=== PATIENT | female | born 1965 | race Caucasian/White ===

== ENCOUNTER 2020-05-20 09:13 | Emergency (ER) | payer OTHER, SELFPAY ==
--- NOTE | ~2020-05-20 | XR_ITS ---
EXAMINATION: XR chest 2V 05/20/2020 09:57 INDICATION: Cough and shortness of breath PROCEDURE: 2 view chest COMPARISON: No prior studies for comparison. FINDINGS: The lungs are clear. There are left fourth and fifth healed rib fractures. The cardiomedias tinal silhouette is within normal limits. There are no pleural effusions. There is no pneumothorax suspected. The lungs are hyperinflated which is consistent with, but not diagnostic of chronic obstr uctive pulmonary disease. IMPRESSION: 1: NO ACUTE CARDIOPULMONARY DISEASE. Reviewed, dictated and finalized at location A. [employer] MANAGER
[2020-05-20 09:30] VITALS: BP 98/60; PULSE 99; RESP 20; TEMP 36.3; O2SAT 98
--- NOTE | 2020-05-20 09:47 | ED.GENADULT ---
HPI - General Adult General Chief complaint: Upper Respiratory Infection Stated complaint: URI Source: patient Mode of arrival: ambulatory History of Present Illness HPI narrative: Patient presents for evaluation of upper respiratory symptoms since 05/10/2020. She reports sinus congestion, clear rhinorrhea, productive cough of yellow sputum, headache, nausea, vomiting. She states in the last few days she is experienced some dyspnea on exertion. She denies any fever, chills, chest pain or diarrhea. She had a mild sore throat at one point, but that has since resolved. No recent sick contacts. She took a Covid test on 05/10/2020 that was negative. She tried taking Jaky-[place], Benadryl, Mucinex DM. She does smoke 1 pack/day. No recent surgeries. Not on exogenous estrogen. Related Data Home Medications Medication Instructions Recorded Confirmed amlodipine 10 mg PO DAILY 05/20/20 05/20/20 hydrochlorothiazide 25 mg PO DAILY 05/20/20 05/20/20 propranolol 20 mg PO DAILY 05/20/20 05/20/20 Allergies Allergy/AdvReac Type Severity Reaction Status Date / Time Sulfa (Sulfonamide Allergy Severe Hives Verified 05/20/20 09:51 Antibiotics) Review of Systems Review of Systems: Narrative: CONSTITUTIONAL: Denies fever, chills, or sweats. EYES: Denies visual changes, redness, or discharge. ENT: Reports clear rhinorrhea, sinus congestion. She previously experienced sore throat, although none currently. CARDIOVASCULAR: Denies chest pain, palpitations, or edema. RESPIRATORY: She reports productive cough of yellow sputum and dyspnea on exertion GASTROINTESTINAL: Denies abdominal pain and diarrhea. Reports nausea and vomiting GENITOURINARY: Denies dysuria or hematuria. SKIN: Denies rash or itching. MUSCULOSKELETAL: Denies back pain, joint pain, or myalgia. NEUROLOGIC: Denies headache, numbness, dizziness, or weakness. PSYCHIATRIC: Denies anxiety or depression. [facility] Past Medical History Medical History Hypertension Tobacco use Surgical History Surgical History History of breast augmentation History of tonsillectomy Family History Family History (Updated 05/20/20 @ 09:50 by Nasir Dawn, KRISTI, JUICE) Mother No pertinent past medical history Social History Social History Smoking status: Current every day smoker Tobacco type: cigarettes Additional smoking assessment comments: Smokes 1 pack/day Substance use: never Living arrangements: alone Occupation/Education: occupation Gender identity (if verbalized by the patient): Female Spiritual care concerns: No Exam Narrative: Exam Narrative: GENERAL: Mildly ill-appearing. wWell-nourished, and in no acute distress. HEAD: Normocephalic, atraumatic. EYES: PERRLA and EOMI. ENT: Nares clear, no rhinorrhea or epistaxis. Mucous membranes moist. Oropharynx without tonsillar hypertrophy exudate or other lesions. Bilateral TMs pearly dorsey nonbulging NECK: Supple. No adenopathy or masses. No carotid bruits or JVD CHEST: Clear to auscultation. No respiratory distress. No wheezes rales or rhonchi HEART: Regular rate and rhythm. Heart rate 99. No murmur heard. Normal peripheral pulses. ABDOMEN: Soft, nontender, nondistended, normal active bowel sounds. EXTREMITIES: Normal range of motion. No edema. SKIN: Warm, dry, no rash. NEURO: No focal deficits. Alert and oriented x3. PSYCH: Normal mood and affect. Course Course Emergency Course: This is a 54-year-old female with complaints of respiratory symptoms since 05/10/2020. Strep, flu, rapid Covid, chest x-ray were obtained. Influenza, Covid, chest x-ray were normal. She did test positive for strep pharyngitis. Will treat with oral penicillin. Patient has no uvular deviation to suggest presence of peritonsillar abscess. In fact, her posterior pharyngeal exam is normal. She was instructed to take an
== END 2020-05-20 10:19 | disposition home or self-care (01) ==
PROVIDERS: Emergency Provider Nurse Practitioner; PCP Nurse Practitioner Adult Health
DX: J02.0 Streptococcal pharyngitis (principal); I10 Essential (primary) hypertension; F17.210 Nicotine dependence, cigarettes, uncomplicated
CPT/HCPCS: 71046; 87426; 87804; 87880; 99213; C9803; G0463

== ENCOUNTER 2021-08-02 15:47 | Emergency (ER) | payer OTHER, SELFPAY ==
[2021-08-02 15:55] VITALS: BP 138/86; PULSE 94; RESP 14; TEMP 36.8; O2SAT 100
--- NOTE | 2021-08-02 16:09 | ED.GENADULT ---
HPI - General Adult General Chief complaint: Dental/Oral Stated complaint: Toothache Time Seen by Provider: 08/02/21 16:10 Source: patient Mode of arrival: ambulatory History of Present Illness HPI narrative: 55-year-old female presented for complaint of sore throat, onset today. She states she has some swelling and tenderness to the roof of her mouth at the left molars. She denies any associated sinus congestion, pressure, ear pain, nausea, fever or chills. She has no pain when chewing or talking. Only hurts to swallow. She has taken ibuprofen as needed. History of tonsillectomy. She is 1-1/2 pack/day smoker. Related Data Home Medications Medication Instructions Recorded Confirmed amlodipine 10 mg PO DAILY 05/20/20 08/02/21 hydrochlorothiazide 25 mg PO DAILY 05/20/20 08/02/21 Allergies Allergy/AdvReac Type Severity Reaction Status Date / Time Sulfa (Sulfonamide Allergy Severe Hives Verified 08/02/21 15:56 Antibiotics) Review of Systems Review of Systems: CONSTITUTIONAL: Denies body aches, fever, chills ENT: Denies rhinorrhea, congestion, sore throat, or otalgia. Reports dental/mouth pain CARDIOVASCULAR: Denies chest pain, palpitations RESPIRATORY: Denies cough or dyspnea. SKIN: Denies rash, itching, or wounds. MUSCULOSKELETAL: Denies myalgia. NEUROLOGIC: Denies headache, numbness, tingling, or weakness. [facility] Past Medical History Medical History Hypertension Tobacco use Surgical History Surgical History History of breast augmentation History of tonsillectomy Family History Family History Mother No pertinent past medical history Social History Social History Smoking status: Current every day smoker Tobacco type: cigarettes Additional smoking assessment comments: Smokes 1 pack/day Substance use: never Gender identity (if verbalized by the patient): Female Spiritual care concerns: No Comments At time of signature, I have reviewed and agree with nursing past medical, surgical, social and family history unless otherwise noted. Please see nursing chart for further information. There is no relevant family history pertinent to the presenting complaint Exam Narrative: GENERAL: Appears in pain; in no acute distress. HEAD: Normocephalic, atraumatic. EYES: EOMI. No redness or drainage. Conjunctivae normal. ENT: Mucous membranes pink and moist. TMs normal bilaterally. Left posterior pharynx with mild swelling to 3rd molar #16 and to hard palate approx [id number], no abscess, tonsils absent. Uvula midline. No stridor drooling trismus. No mandibular swelling. NECK: Normal AROM. Supple. No lymphadenopathy. CHEST: No respiratory distress. Clear to auscultation. HEART: Regular rate and rhythm. No murmur appreciated. ABDOMEN: Soft, nontender, nondistended, normal active bowel sounds. SKIN: Warm, dry, no rash. Normal skin turgor. NEURO: No focal deficits. Alert and oriented x3. Gait steady. Course Course Emergency Course: Patient is aware of diagnosis, understands and agrees to treatment plan. Anticipatory guidance given. Patient agrees to follow-up as directed and is aware of reasons to seek care at the emergency department. Portions of this record may have been created with voice recognition software Level of Care: Express Care Visit Vital Signs Vital signs: Vital Signs Temperature 98.2 F 08/02/21 15:55 Pulse Rate 94 08/02/21 15:55 Respiratory Rate 14 08/02/21 15:55 Blood Pressure 138/86 08/02/21 15:55 Pulse Oximetry 100 08/02/21 15:55 Temperature 98.2 F 08/02/21 15:55 Pulse Rate 94 08/02/21 15:55 Respiratory Rate 14 08/02/21 15:55 Blood Pressure 138/86 08/02/21 15:55 Pulse Oximetry 100 08/02/21 15:55 Medical Decision Making MDM Narrative Medical decision regine
== END 2021-08-02 16:32 | disposition home or self-care (01) ==
PROVIDERS: Emergency Provider Nurse Practitioner Family
DX: J02.0 Streptococcal pharyngitis (principal); F17.210 Nicotine dependence, cigarettes, uncomplicated; I10 Essential (primary) hypertension
CPT/HCPCS: 87880; 99213; G0463

== ENCOUNTER 2022-03-23 09:36 | Emergency (ER) | payer OTHER, SELFPAY ==
--- NOTE | ~2022-03-23 | XR_ITS ---
EXAMINATION: [id number] DATE: 03/23/2022 10:06 INDICATION: Left-sided chest pain post fall TECHNIQUE: A frontal inspiratory view of the chest and 3 views of the left ribs were obtained. COMPARISON: Chest radiograph dated 05/20/2020 FINDINGS: 11 parathoracic ribs. Old healed fractures of the posterolateral left fourth and fifth ribs. Linear l ucency ejection across the lateral left ninth rib on the oblique projection suspicious for nondisplac ed fracture. No focal airspace opacities, pulmonary edema, pleural effusion or pneumothorax. Cardiome diastinal silhouette is normal. Mild S-shaped curvature of the thoracic spine. IMPRESSION: 1. Linear lucency suspicious for nondisplaced fracture at the lateral left ninth rib. Correlate for p oint tenderness at this location. 2. No acute cardiopulmonary disease. Reviewed, dictated and finalized at location A. [employer]ION MOLDING MACHINE SETTER IMPRESSION: 1. Linear lucency suspicious for nondisplaced fracture at the lateral left nint h rib. Correlate for point tenderness at this location. 2. No acute cardiopulmonary disease.
[2022-03-23 09:40] VITALS: BP 110/72; PULSE 91; RESP 20; TEMP 36.7; O2SAT 100
--- NOTE | 2022-03-23 10:35 | ED.FALL ---
HPI - Fall General Chief Complaint: Fall Stated Complaint: Fall Injury/Rib Time Seen by Provider: 03/23/22 10:35 History of Present Illness HPI Narrative: Patient presents with rib pain. Patient states she fell last night tripping over her cat. Patient has left-sided rib pain. Denies any shortness of breath or chest pain. Patient denies any other injuries. Related Data Home Medications Medication Instructions Recorded Confirmed amlodipine 10 mg tablet 10 mg PO DAILY 05/20/20 03/23/22 hydrochlorothiazide 25 mg tablet 25 mg PO DAILY 05/20/20 03/23/22 propranolol 10 mg tablet 10 mg DAILY 03/23/22 03/23/22 Allergies Allergy/AdvReac Type Severity Reaction Status Date / Time Sulfa (Sulfonamide Allergy Severe Hives Verified 03/23/22 10:08 Antibiotics) Review of Systems Review of Systems: CONSTITUTIONAL: Denies fever, chills, or sweats. EYES: Denies visual changes, redness, or discharge. ENT: Denies rhinorrhea, congestion, sore throat, or otalgia. CARDIOVASCULAR: Denies chest pain, palpitations, or edema. RESPIRATORY: Denies cough or dyspnea. GASTROINTESTINAL: Denies abdominal pain, nausea, vomiting, or diarrhea. GENITOURINARY: Denies dysuria or hematuria. SKIN: Denies rash or itching. MUSCULOSKELETAL: Denies back pain, joint pain, or myalgia. NEUROLOGIC: Denies headache, numbness, or weakness. PSYCHIATRIC: Denies anxiety or depression. [facility] Past Medical History Medical History Hypertension Tobacco use Surgical History Surgical History History of breast augmentation History of tonsillectomy Family History Family History Mother No pertinent past medical history Social History Social History Smoking status: Current every day smoker Tobacco type: cigarettes Additional smoking assessment comments: Smokes 1 pack/day Substance use: never Gender identity (if verbalized by the patient): Female Spiritual care concerns: No Comments At time of signature, agree with nursing past medical, surgical, social and family history. There is no relevant family history pertinent to the presenting complaint Exam Narrative: GENERAL: Well-appearing, well-nourished, and in no acute distress. HEAD: Normocephalic, atraumatic. EYES: PERRLA and EOMI. ENT: Nares clear, no rhinorrhea or epistaxis. Mucous membranes moist. NECK: Supple. CHEST: Clear to auscultation. No respiratory distress. HEART: Regular rate and rhythm. No murmur heard. Normal peripheral pulses. ABDOMEN: Soft, nontender, nondistended, normal active bowel sounds. EXTREMITIES: Normal range of motion. No edema. SKIN: Warm, dry, no rash. NEURO: No focal deficits. Alert and oriented x3. [place] Coma Scale Eye Opening: Spontaneous 4 [place] Coma Scale Motor: Obeys Commands 6 [place] Coma Scale Verbal: Oriented 5 [place] Coma Scale Total 15 Course Course Level of Care: Express Care Visit Vital Signs Vital signs: Vital Signs Temperature 36.7 C 03/23/22 09:40 Pulse Rate 91 03/23/22 09:40 Respiratory Rate 20 03/23/22 09:40 Blood Pressure 110/72 03/23/22 09:40 Pulse Oximetry 100 03/23/22 09:40 Oxygen Delivery Room Air 03/23/22 09:40 Temperature 36.7 C 03/23/22 09:40 Pulse Rate 91 03/23/22 09:40 Respiratory Rate 20 03/23/22 09:40 Blood Pressure 110/72 03/23/22 09:40 Pulse Oximetry 100 03/23/22 09:40 Oxygen Delivery Room Air 03/23/22 09:40 MDM - Fall Differential Diagnosis Differential diagnosis: Likely syncope, dislocation of shoulder region, fracture of wrist, compression fracture, concussion with loss of consciousness and concussion without loss of consciousness Imaging Data My impression: Linear lucency suspicious for nondisplaced fracture at the lateral left 9th rib. Radiologist's impression: Linear lucency suspicious f
== END 2022-03-23 10:52 | disposition home or self-care (01) ==
PROVIDERS: Emergency Provider Nurse Practitioner Family
DX: S22.32XA Fracture of one rib, left side, initial encounter for closed fracture (principal); I10 Essential (primary) hypertension; F17.210 Nicotine dependence, cigarettes, uncomplicated; W01.0XXA Fall on same level from slipping, tripping and stumbling without subsequent striking against object, initial encounter
CPT/HCPCS: 71101; 99213; G0463

== ENCOUNTER 2022-08-29 12:13 | Emergency (ER) | payer OTHER, SELFPAY ==
[2022-08-29 12:22] VITALS: BP 124/97; PULSE 107; RESP 20; TEMP 36.2; O2SAT 97
[2022-08-29 12:34] VITALS: BP 124/97; PULSE 107; RESP 20; TEMP 36.2; O2SAT 97
--- NOTE | 2022-08-29 12:39 | ED.NAVMDI ---
HPI - Nausea/Vomiting/Diarrhea General Chief complaint: Nausea/Vomiting/Diarrhea Stated complaint: nausea / diarrhea Time Seen by Provider: 08/29/22 12:35 Source: patient, RN notes reviewed and old records reviewed Mode of arrival: ambulatory Limitations: no limitations History of Present Illness HPI Narrative: 56 year old female who presents to [facility] care with complaints of nausea vomiting with diarrhea starting on Friday, 3 days ago. Yesterday diarrhea only and today she started having nausea and vomiting again. Patient reports that she has not had any fevers, chills or sweats.Patient reports no acute abdominal pain only some cramping with diarrhea. Patient denies any known ill contacts. MD elicited complaint: nausea, vomiting and diarrhea Onset (ago): day(s) (2) Related Data Home Medications Medication Instructions Recorded Confirmed amlodipine 10 mg tablet 10 mg PO DAILY 05/20/20 08/29/22 hydrochlorothiazide 25 mg tablet 25 mg PO DAILY 05/20/20 08/29/22 propranolol 10 mg tablet 10 mg DAILY 03/23/22 08/29/22 Allergies Allergy/AdvReac Type Severity Reaction Status Date / Time Sulfa (Sulfonamide Allergy Severe Hives Verified 08/29/22 12:29 Antibiotics) Review of Systems Review of Systems: CONSTITUTIONAL: Denies fever, chills, or sweats. EYES: Denies visual changes, redness, or discharge. ENT: Denies rhinorrhea, congestion, sore throat, or otalgia. CARDIOVASCULAR: Denies chest pain, palpitations, or edema. RESPIRATORY: Denies cough or dyspnea GASTROINTESTINAL: Denies abdominal pain,positive for nausea, vomiting, or diarrhea. GENITOURINARY: Denies dysuria or hematuria. SKIN: Denies rash or itching. MUSCULOSKELETAL: Denies back pain, joint pain, or myalgia. NEUROLOGIC: Denies headache, numbness, or weakness. PSYCHIATRIC: Reports anxiety or depression. All systems reviewed & are unremarkable except as noted in HPI and below PMFSH Past Medical History Medical History Hypertension Tobacco use Surgical History Surgical History History of breast augmentation History of tonsillectomy Family History Family History Mother No pertinent past medical history Social History Social History Smoking status: Current every day smoker Tobacco type: cigarettes Additional smoking assessment comments: Smokes 1 pack/day Substance use: never Living arrangements: alone Occupation/Education: occupation Gender identity (if verbalized by the patient): Female Spiritual care concerns: No Comments At time of signature, agree with nursing past medical, surgical, social and family history. There is no relevant family history pertinent to the presenting complaint Exam Narrative: GENERAL: Well-appearing, well-nourished, and in no acute distress. HEAD: Normocephalic, atraumatic. EYES: PERRLA and EOMI. ENT: Nares clear, no rhinorrhea or epistaxis. Mucous membranes moist.TM's normal, throat pink without swelling NECK: Supple.no lymphadenopathy CHEST: Clear to auscultation. No respiratory distress.SAO2 97% on room air HEART: Regular rate and rhythm. No murmur heard. Normal peripheral pulses. ABDOMEN: Soft, nontender, nondistended, normal active bowel sounds.episodes of nausea with vomiting and diarrhea for past 3 days., denies any urinary burning or CVA tenderness. EXTREMITIES: Normal range of motion. No edema. SKIN: Warm, dry, no rash. NEURO: No focal deficits. Alert and oriented x3. Course Course Emergency Course: Patient is aware of diagnosis, understands and agrees to treatment plan.? Anticipatory guidance given.? Patient agrees to follow-up as directed and is aware of reasons to seek care at the emergency department. Portions of this record may have been created with voice recognition software Level of Care: [place] Care Visit Vi
== END 2022-08-29 12:58 | disposition home or self-care (01) ==
PROVIDERS: Emergency Provider Registered Nurse
DX: K52.9 Noninfective gastroenteritis and colitis, unspecified (principal); F17.210 Nicotine dependence, cigarettes, uncomplicated; I10 Essential (primary) hypertension
CPT/HCPCS: 99213; G0463

== ENCOUNTER 2023-01-29 16:10 | Emergency (ER) | payer OTHER, SELFPAY ==
[2023-01-29 16:16] VITALS: BP 120/88; PULSE 90; RESP 16; TEMP 36.6; O2SAT 100
--- NOTE | 2023-01-29 16:24 | ED.FEMALEGU ---
HPI - Female Genitourinary General Chief complaint: Urogenital-Female Stated complaint: Urianry Problem Time Seen by Provider: 01/29/23 16:25 Source: patient and RN notes reviewed Mode of arrival: ambulatory Limitations: no limitations History of Present Illness HPI Narrative: 57-year-old female presents concern for urine frequency, small amount of urine, low back pain that started overnight. She denies fever, aches, chills, sweats, nausea, vomiting, body aches. She reports frequent urinary tract infections with similar symptoms. MD elicited complaint: UTI Related Data Home Medications Medication Instructions Recorded Confirmed amlodipine 10 mg tablet 10 mg PO DAILY 05/20/20 08/29/22 hydrochlorothiazide 25 mg tablet 25 mg PO DAILY 05/20/20 08/29/22 propranolol 10 mg tablet 10 mg DAILY 03/23/22 08/29/22 Allergies Allergy/AdvReac Type Severity Reaction Status Date / Time Sulfa (Sulfonamide Allergy Severe Hives Verified 08/29/22 12:29 Antibiotics) Review of Systems Review of Systems: CONSTITUTIONAL: Denies malaise, chills, sweats, or fever. CARDIOVASCULAR: Denies chest pain, palpitations, or edema. RESPIRATORY: Denies cough or dyspnea. GASTROINTESTINAL: Denies abdominal pain, nausea, vomiting, diarrhea GENITOURINARY: Reports frequency, small amounts of urine. Denies dysuria, urgency, suprapubic pressure. Denies flank pain or hematuria. SKIN: Denies rash or itching. MUSCULOSKELETAL: Reports bilateral low back pain. Denies myalgia. All systems reviewed & are unremarkable except as noted in HPI and below PMFSH Past Medical History Medical History Hypertension Tobacco use Surgical History Surgical History History of breast augmentation History of tonsillectomy Family History Family History Mother No pertinent past medical history Social History Social History Smoking status: Current every day smoker Tobacco type: cigarettes Additional smoking assessment comments: Smokes 1 pack/day Substance use: never Living arrangements: alone Occupation/Education: occupation Gender identity (if verbalized by the patient): Female Spiritual care concerns: No Comments At time of signature, agree with nursing past medical, surgical, social and family history. There is no relevant family history pertinent to the presenting complaint Exam Narrative: GENERAL: Well-appearing, well-nourished, and in no acute distress. HEAD: Normocephalic. EYES: PERRLA, conjunctivae clear. NECK: Supple. No lymphadenopathy CHEST: Clear to auscultation. No respiratory distress. HEART: Regular rate and rhythm. ABDOMEN: Soft, nontender upon palpation, nondistended, normal active bowel sounds, no palpable or pulsatile masses, no guarding. No CVA tenderness SKIN: Warm, dry, no rash. NEURO: Alert and oriented x3. PSYCH: Normal mood and affect Course Course Emergency Course: Patient is aware of diagnosis, understands and agrees to treatment plan. Anticipatory guidance given. Patient agrees to follow-up as directed and is aware of reasons to seek care at the emergency department. Portions of this record may have been created with voice recognition software Level of Care: Express Care Visit Vital Signs Vital signs: Vital Signs Temperature 97.9 F 01/29/23 16:16 Pulse Rate 90 01/29/23 16:16 Respiratory Rate 16 01/29/23 16:16 Blood Pressure 120/88 01/29/23 16:16 Pulse Oximetry 100 01/29/23 16:16 Oxygen Delivery Room Air 01/29/23 16:16 Temperature 97.9 F 01/29/23 16:16 Pulse Rate 90 01/29/23 16:16 Respiratory Rate 16 01/29/23 16:16 Blood Pressure 120/88 01/29/23 16:16 Pulse Oximetry 100 01/29/23 16:16 Oxygen Delivery Room Air 01/29/23 16:16 Reviewed. MDM - Female Genitourinary MDM [place]
== END 2023-01-29 16:34 | disposition home or self-care (01) ==
PROVIDERS: Emergency Provider Nurse Practitioner
DX: R35.0 Frequency of micturition (principal); M54.50 Low back pain, unspecified; I10 Essential (primary) hypertension; F17.210 Nicotine dependence, cigarettes, uncomplicated
CPT/HCPCS: 81003; 87086; 99213; G0463

== ENCOUNTER 2023-12-21 08:26 | Emergency (ER) | payer OTHER, SELFPAY ==
[2023-12-21 08:32] VITALS: BP 141/94; PULSE 100; RESP 18; TEMP 36.8; O2SAT 99
[2023-12-21 09:05] LABS: EDINFLUASCREEN Negative; EDINFLUBSCREEN Negative; EDSTREPNEGPOS1 Presumptive Negative
--- NOTE | 2023-12-21 09:23 | ED.GENADULT ---
HPI - General Adult General Chief complaint: Upper Respiratory Infection Stated complaint: Sore Thorat Source: patient Mode of arrival: ambulatory Limitations: no limitations History of Present Illness HPI narrative: Patient presents for evaluation of sick symptoms. Symptom onset this morning. Symptoms include sinus congestion, sore throat and occasional cough. No fever, chills, nausea, vomiting, diarrhea, shortness of breath. One of her coworkers has COVID. She smokes more than 1 ppd. She is not taking any medications to assist with her symptoms. Related Data Home Medications Medication Instructions Recorded Confirmed amlodipine 10 mg tablet 10 mg PO DAILY 05/20/20 08/29/22 hydrochlorothiazide 25 mg tablet 25 mg PO DAILY 05/20/20 08/29/22 propranolol 10 mg tablet 10 mg DAILY 03/23/22 08/29/22 Allergies Allergy/AdvReac Type Severity Reaction Status Date / Time Sulfa (Sulfonamide Allergy Severe Hives Verified 08/29/22 12:29 Antibiotics) Review of Systems Review of Systems: CONSTITUTIONAL: Denies fever, chills, or sweats. EYES: Denies visual changes, redness, or discharge. ENT: Reports sinus congestion and sore throat. Denies rhinorrhea or otalgia. CARDIOVASCULAR: Denies chest pain, palpitations, or edema. RESPIRATORY: Reports cough. Denies SOB GASTROINTESTINAL: Denies abdominal pain, nausea, vomiting, or diarrhea. GENITOURINARY: Denies dysuria or hematuria. SKIN: Denies rash or itching. MUSCULOSKELETAL: Denies back pain, joint pain, or myalgia. NEUROLOGIC: Denies headache, numbness, dizziness, or weakness. PSYCHIATRIC: Denies anxiety or depression. [facility] Past Medical History Medical History Hypertension Tobacco use Surgical History Surgical History History of breast augmentation History of tonsillectomy Family History Family History Mother No pertinent past medical history Social History Social History Smoking status: Current every day smoker Tobacco type: cigarettes Additional smoking assessment comments: Smokes 1 pack/day Substance use: never Living arrangements: alone Occupation/Education: occupation Gender identity (if verbalized by the patient): Female Spiritual care concerns: No Exam Narrative: GENERAL: Well-appearing, well-nourished, and in no acute distress. HEAD: Normocephalic, atraumatic. EYES: PERRLA and EOMI. ENT: Nares clear, no rhinorrhea or epistaxis. Mucous membranes moist. Oropharynx without tonsillar hypertrophy exudate or other lesions. Bilateral TMs pearly dorsey nonbulging NECK: Supple. No adenopathy or masses. No carotid bruits or JVD CHEST: Clear to auscultation. No respiratory distress. No wheezes rales or rhonchi HEART: Regular rate and rhythm. No murmur heard. Normal peripheral pulses. ABDOMEN: Soft, nontender, nondistended, normal active bowel sounds. EXTREMITIES: Normal range of motion. No edema. SKIN: Warm, dry, no rash. NEURO: No focal deficits. Alert and oriented x3. PSYCH: Normal mood and affect. Course Course Emergency Course: This is a 58-year-old female who presented for evaluation of sick symptoms. COVID, influenza, strep negative. Increase hydration. Advised on smoking cessation. Follow primary provider. Go to the ER for worsening symptoms. Patient is in agreement with plan of care. Level of Care: Express Care Visit Vital Signs Vital signs: Vital Signs Temperature 36.8 C 12/21/23 08:32 Pulse Rate 100 12/21/23 08:32 Respiratory Rate 18 12/21/23 08:32 Blood Pressure 141/94 H 12/21/23 08:32 Pulse Oximetry 99 12/21/23 08:32 Oxygen Delivery Room Air 12/21/23 08:32 Temperature 36.8 C 12/21/23 08:32 Pulse Rate 100 12/21/23 08:32 Respiratory Rate 18 12/21/23 08:32 Blood Pressure 141/94 H 12/21/23 08
== END 2023-12-21 09:25 | disposition home or self-care (01) ==
PROVIDERS: Emergency Provider Nurse Practitioner
DX: B34.9 Viral infection, unspecified (principal); Z20.822 Contact with and (suspected) exposure to COVID-19; F17.210 Nicotine dependence, cigarettes, uncomplicated; I10 Essential (primary) hypertension
CPT/HCPCS: 87081; 87426; 87804; 87880; 99213; G0463

== ENCOUNTER 2024-02-09 16:04 | Emergency (ER) | payer OTHER, SELFPAY ==
--- NOTE | ~2024-02-09 | XR_ITS ---
[id number] Ordering provider: Krystle Magana NP History: . fell and hit ribs against floor, pain . Comparison: None. FINDINGS: BONES: No acute right rib fracture or fracture of the visualized osseous structures. LUNGS: No effusions or infiltrates. No pneumothorax. SOFT TISSUES: Normal. IMPRESSION: No right rib fracture . Reviewed, dictated and finalized at location A. IMPRESSION: No right rib fracture .
[2024-02-09 16:15] VITALS: BP 139/104; PULSE 80; RESP 18; TEMP 36.7; O2SAT 99
--- NOTE | 2024-02-09 16:32 | ED.BACK ---
HPI - Back Pain/Injury General Chief Complaint: Wound/Laceration Stated Complaint: Fall Injury/Right Flank Pain Time Seen by Provider: 02/09/24 16:32 Source: patient Mode of arrival: ambulatory Limitations: no limitations History of Present Illness HPI Narrative: 58-year-old female presents with complaint of pain to right mid back. Patient states she fell 2 days ago onto floor. Did not have pain until she started coughing today. Now has pain with movement. Did take Tylenol prior to arrival and states that is helping. All systems reviewed and negative except as noted above. Related Data Home Medications Medication Instructions Recorded Confirmed amlodipine 10 mg tablet 10 mg PO DAILY 05/20/20 02/09/24 hydrochlorothiazide 25 mg tablet 25 mg PO DAILY 05/20/20 02/09/24 propranolol 10 mg tablet 10 mg DAILY 03/23/22 02/09/24 Allergies Allergy/AdvReac Type Severity Reaction Status Date / Time Sulfa (Sulfonamide Allergy Severe Hives Verified 02/09/24 16:12 Antibiotics) Review of Systems Review of Systems: CONSTITUTIONAL: Denies fever, chills, or sweats. EYES: Denies visual changes, redness, or discharge. ENT: Denies rhinorrhea, congestion, sore throat, or otalgia. CARDIOVASCULAR: Denies chest pain, palpitations, or edema. RESPIRATORY: Denies cough or dyspnea. GASTROINTESTINAL: Denies abdominal pain, nausea, vomiting, or diarrhea. GENITOURINARY: Denies dysuria or hematuria. SKIN: Denies rash or itching. MUSCULOSKELETAL: Reports right mid back pain. Denies joint pain, or myalgia. NEUROLOGIC: Denies headache, numbness, or weakness. PSYCHIATRIC: Denies anxiety or depression. All other systems reviewed are negative, except as documented in HPI. [facility] Past Medical History Medical History Hypertension Tobacco use Surgical History Surgical History History of breast augmentation History of tonsillectomy Family History Family History Mother No pertinent past medical history Social History Social History Smoking status: Current every day smoker Tobacco type: cigarettes Additional smoking assessment comments: Smokes 1 pack/day Substance use: never Living arrangements: alone Occupation/Education: occupation Gender identity (if verbalized by the patient): Female Spiritual care concerns: No Comments At time of signature, agree with nursing past medical, surgical, social and family history. There is no relevant family history pertinent to the presenting complaint. Exam Narrative: GENERAL: This is a well-nourished, well-developed patient, in no apparent distress. HEAD: normocephalic, atraumatic. EYES: PERRL. Sclera clear/white. Vision is grossly intact. EARS: External ears normal NOSE: External nose normal NECK: Neck supple, non-tender without lymphadenopathy, masses or thyromegaly. CARDIOVASCULAR: Regular rate and rhythm without murmurs, gallops, or rubs. RESPIRATORY: Clear to auscultation. Breath sounds equal bilaterally. No wheezes, rales, or rhonchi. SKIN: warm, Dry, intact with no suspicious lesions or rash, good texture and turgor. NEURO: awake, alert, and oriented to person, place and time. There were no obvious focal neurologic abnormalities. EXTREMITIES: No joint tenderness, effusion, or edema noted. No calf tenderness. Negative Homans sign bilaterally. BACK: tenderness to R posterior ribs, bruising noted. no deformity. no midline tenderness Back/Spine/Pelvis: Back/spine/pelvis image: 1. contusion and tender on palpation Course Course Level of Care: Express Care Visit Vital Signs Vital signs: reviewed MDM - Back Pain/Injury MDM Narrative Medical decision making narrative: Patient is aware of diagnosis, understands and agrees to treatment plan. Anticipatory guidance
== END 2024-02-09 17:15 | disposition home or self-care (01) ==
PROVIDERS: Emergency Provider Nurse Practitioner Family
DX: S20.221A Contusion of right back wall of thorax, initial encounter (principal); W19.XXXA Unspecified fall, initial encounter; I10 Essential (primary) hypertension; F17.210 Nicotine dependence, cigarettes, uncomplicated
CPT/HCPCS: 71101; 99213; G0463